=== PATIENT | female | born 1980 | race Caucasian/White ===

== ENCOUNTER 2020-07-30 09:25 | Observation (INO) ==
[2020-07-30] MEDS ORDERED: SODIUM CHLORIDE 0.9% 1,000 ML IV STA (10:28)
[2020-07-30] MEDS ORDERED: THIAMINE 200 MG/2 ML VIAL IV STA (10:28)
[2020-07-30 10:39] LABS: Basophils % 0.4 % (0.0-0.8); Eosinophils % 0.3 % (0.00-10.9); Hematocrit 37.2 VOL% (35.7-47.0); Hemoglobin 11.5 GM/DL (12.0-16.0); Immature Granulocytes % 0.6 %; Immature Granulocytes Absolute 0.06 #; Lymphocytes # 2.3 10*3/uL (1.4-4.0); Mean Corpuscular HGB Conc 30.9 GM/DL (32-36); Mean Corpuscular Volume 85.7 FL (87-102); Mean Platelet Volume 10.4 FL (9.6-12.0); Monocytes % 6.6 % (1.7-12.7); Neutrophils % 70.1 % (38.7-73.9); Platelet Count 214 T/CUMM (130-400); Red Blood Count 4.34 MC/CUMM (3.8-5.5); Red Cell Distribution Width 15.7 % (9.3-17.3); White Blood Count 10.6 T/CUMM (4-12)
[2020-07-30 10:53] LABS: Alanine Aminotransferase 37 U/L (13-56); Albumin 3.8 G/DL (3.4-5.0); Alkaline Phosphatase 83 U/L (45-117); Aspartate Amino Transferase 78 U/L (0-37); Blood Urea Nitrogen 9 MG/DL (7-18); Calcium 8.4 MG/DL (8.5-10.1); Carbon Dioxide 20 MMOL/L (21-32); Estimated Glom Filtration Rate 65 ML/MIN; Glucose 144 MG/DL (74-106); Osmolality,Calculated 269.2 MOS/KG (273-304); Potassium 3.6 MMOL/L (3.5-5.1); Sodium 134 MMOL/L (136-145); Total Protein 7.7 G/DL (6.4-8.3)
[2020-07-30 11:45] LABS: Bacteria,Urine Many /HPF (Few); Bilirubin,Urine Negative (Negative); Blood, Urine Large mg/dL (Negative); Glucose,Urine (UA) Negative (Negative); Ketones,Urine Negative (Negative); Nitrite,Urine Negative (Negative); Protein,Urine Negative; RBC,Urine 16 /HPF (0-4); Squamous Epithelial Cell,Urine Occasional /HPF (0-10); Urine Appearance CLOUDY (Clear); Urine Color Yellow (Yellow); Urine Specific Gravity 1.001 (1.001-1.035); Urine Urobilinogen < 2.0 EU/DL (0.2-1.0); WBC,Urine 1 /HPF (0-6)
[2020-07-30 12:07] LABS: Barbiturates Screen,Urine Negative (Negative); Benzodiazepines Screen,Urine Negative (Negative); Cannabinoid Screen,Urine Negative (Negative); Opiate Screen,Urine Negative (Negative); Phencyclidine Screen,Urine Negative (Negative)
[2020-07-30] MEDS ORDERED: ONDANSETRON 4 MG/2 ML VIAL IV PRN (12:37)
[2020-07-30] MEDS ORDERED: DEXTROSE 50% 25 GM/50 ML VIAL IV PRN ×2 (12:37)
[2020-07-30] MEDS ORDERED: GLUCAGON 1 MG VIAL IM PRN ×2 (12:37)
[2020-07-30] MEDS ORDERED: MELOXICAM 7.5 MG TABLET PO PRN (15:04)
[2020-07-30] MEDS ORDERED: NICOTINE 14 MG/24 HR PATCH TRANSDERM PRN (15:21)
[2020-07-30] MEDS ORDERED: INSULIN LISPRO 100 UNIT/ML SUBCUT SCH (16:30)
[2020-07-30] MEDS: SODIUM CHLORIDE 0.9% 1,000 ML IV SCH (18:01)
[2020-07-30] MEDS ORDERED: diphenhydrAMINE CAP 25 MG CAPSULE ONE (20:41)
[2020-07-30] MEDS ORDERED: LITHIUM 300 MG CAPSULE PO SCH (21:00)
[2020-07-30] MEDS ORDERED: ERGOCALCIFEROL 50,000 UNIT CAPSULE PO SCH (21:00)
[2020-07-30] MEDS: diphenhydrAMINE CAP 50 MG CAPSULE PO PRN (21:04)
[2020-07-30] MEDS: FOLIC ACID 1 MG TABLET PO SCH (21:05)
[2020-07-30] MEDS: LITHIUM 300 MG CAPSULE PO SCH (21:08)
[2020-07-31] MEDS: LORazepam 2 MG/1 ML VIAL IV PRN ×3 (00:50→23:17)
[2020-07-31 05:59] LABS: Basophils # 0.1 10*3/uL (0.0-0.2); Basophils % 0.4 % (0.0-0.8); Eosinophils # 0.1 10*3/uL (0.0-0.87); Eosinophils % 0.9 % (0.00-10.9); Hematocrit 37.7 VOL% (35.7-47.0); Hemoglobin 11.4 GM/DL (12.0-16.0); Immature Granulocytes % 0.7 %; Immature Granulocytes Absolute 0.09 #; Lymphocytes # 2.6 10*3/uL (1.4-4.0); Lymphocytes % 19.1 % (21.3-54.2); Mean Corpuscular HGB Conc 30.2 GM/DL (32-36); Mean Corpuscular Volume 88.3 FL (87-102); Mean Platelet Volume 10.4 FL (9.6-12.0); Monocytes % 3.2 % (1.7-12.7); Neutrophils % 75.7 % (38.7-73.9); Platelet Count 188 T/CUMM (130-400); Red Blood Count 4.27 MC/CUMM (3.8-5.5); Red Cell Distribution Width 15.9 % (9.3-17.3); White Blood Count 13.7 T/CUMM (4-12)
[2020-07-31 06:05] LABS: Calcium 8.3 MG/DL (8.5-10.1); Osmolality,Calculated 268.8 MOS/KG (273-304); Potassium 3.3 MMOL/L (3.5-5.1)
[2020-07-31] MEDS: SODIUM CHLORIDE 0.9% 1,000 ML IV SCH ×3 (08:18→22:03)
[2020-07-31] MEDS: ACETAMINOPHEN 325 MG TABLET PO PRN ×2 (09:05→15:56)
[2020-07-31] MEDS: THIAMINE 100 MG TABLET PO SCH (09:06)
[2020-07-31] MEDS: LEVOTHYROXINE 125 MCG TABLET PO SCH (09:06)
[2020-07-31] MEDS: MULTIVITAMIN (BEROCCA) TABLET PO SCH (09:06)
[2020-07-31] MEDS: LITHIUM 300 MG CAPSULE PO SCH ×2 (10:14→21:02)
[2020-07-31] MEDS: DIVALPROEX ER 500 MG TABLET PO SCH ×2 (10:25→21:01)
[2020-07-31] MEDS: GABAPENTIN 600 MG TABLET PO SCH ×3 (10:25→21:01)
[2020-07-31] MEDS: POTASSIUM CHLORIDE 20 MEQ TABLET PO PRN ×2 (13:49→15:54)
[2020-07-31] MEDS: IBUPROFEN 600 MG TABLET PO PRN (15:55)
[2020-07-31] MEDS: MYLANTA/LIDO VISC 2:1 300 ML BOTTLE SWISH/SPIT SCH ×2 (15:56→21:01)
[2020-07-31] MEDS ORDERED: DULoxetine 30 MG CAPSULE PO SCH (21:00)
[2020-07-31] MEDS: FOLIC ACID 1 MG TABLET PO SCH (21:01)
[2020-07-31] MEDS: diphenhydrAMINE CAP 50 MG CAPSULE PO PRN (21:03)
[2020-08-01] MEDS ORDERED: ZIPRASIDONE 20 MG/1 ML VIAL IM ONE (02:29)
[2020-08-01 07:09] LABS: Basophils % 0.3 % (0.0-0.8); Eosinophils # 0.2 10*3/uL (0.0-0.87); Eosinophils % 2.1 % (0.00-10.9); Hemoglobin 11.2 GM/DL (12.0-16.0); Immature Granulocytes % 0.6 %; Immature Granulocytes Absolute 0.05 #; Lymphocytes % 22.9 % (21.3-54.2); Mean Corpuscular HGB Conc 30.3 GM/DL (32-36); Mean Corpuscular Volume 89.8 FL (87-102); Mean Platelet Volume 10.3 FL (9.6-12.0); Monocytes % 4.6 % (1.7-12.7); Neutrophils % 69.5 % (38.7-73.9); Platelet Count 145 T/CUMM (130-400); Red Blood Count 4.12 MC/CUMM (3.8-5.5); Red Cell Distribution Width 16.4 % (9.3-17.3); White Blood Count 8.9 T/CUMM (4-12)
[2020-08-01 07:44] LABS: Potassium 3.8 MMOL/L (3.5-5.1)
[2020-08-01 07:50] LABS: Albumin 3.2 G/DL (3.4-5.0); Bilirubin,Direct 0.22 MG/DL (0.0-0.20); Bilirubin,Indirect 0.7 MG/DL (0.0-1.0); Bilirubin,Total 0.9 MG/DL (0.2-1.0); Total Protein 6.9 G/DL (6.4-8.3)
[2020-08-01] MEDS: GABAPENTIN 600 MG TABLET PO SCH ×2 (08:38→14:57)
[2020-08-01] MEDS: LEVOTHYROXINE 125 MCG TABLET PO SCH (08:39)
[2020-08-01] MEDS: DIVALPROEX ER 500 MG TABLET PO SCH (08:39)
[2020-08-01] MEDS: THIAMINE 100 MG TABLET PO SCH (08:39)
[2020-08-01] MEDS: MULTIVITAMIN (BEROCCA) TABLET PO SCH (08:39)
[2020-08-01] MEDS: MYLANTA/LIDO VISC 2:1 300 ML BOTTLE SWISH/SPIT SCH ×2 (08:43→11:02)
[2020-08-01] MEDS ORDERED: LITHIUM ER 300 MG TABLET PO SCH (09:00)
[2020-08-01] MEDS ORDERED: LORazepam 1 MG TABLET PO ONE (11:00)
[2020-08-01] MEDS: IBUPROFEN 600 MG TABLET PO PRN (11:02)
[2020-08-01 12:04] VITALS: BP 169/77
[2020-08-01] MEDS: ACETAMINOPHEN 325 MG TABLET PO PRN (14:59)
== END 2020-08-01 15:00 | disposition home or self-care (01) ==
LOC: EDBD → EDUNIT# → N.ED 09:25 → N.EDINP 09:25 → N.5E 22:51
PROVIDERS: ADMIT Internal Medicine; ATTEND Internal Medicine